=== PATIENT | male | born 1930 | race Caucasian/White ===

== ENCOUNTER 2016-04-04 19:26 | Inpatient (IN) | payer MEDICARE ==
--- NOTE | 2016-04-04 19:41 | ED ---
Dizziness - HPI Summary HPI Summary: Patient presents for evaluation after fall at home. He was transitioning from his recliner to his automated wheelchair, when he slipped and fell onto the ground. Denies any LOC, N, V, ALY, diplopia, neck/chest/back/limb/abd pain. Feels well without complaint now. Claims to have poor po intake due to lack of appetite. - History Of Current Complaint Stated Complaint: FALL/ WEAKNESS Time Seen by Provider: 04/04/16 19:29 Hx Obtained From: Patient, EMS Onset/Duration: Resolved Timing: Intermittent Episode Lasting Severity Initially: Mild Severity Currently: Mild - Allergies/Home Medications Allergies/Adverse Reactions: Allergies Allergy/AdvReac Type Severity Reaction Status Date / Time No Known Allergies Allergy Verified 11/04/13 16:50 PMH/Surg Hx/FS Hx/Imm Hx - Social History Alcohol Use: None Substance Use Type: Reports: None Smoking Status (MU): Never Smoked Tobacco Review of Systems Negative: Fever, Chills Negative: Blurred Vision, Diplopia Negative: Palpitations, Chest Pain Negative: Shortness Of Breath Negative: Abdominal Pain Negative: Arthralgia, Myalgia, Decreased ROM Negative: Headache, Weakness, Paresthesia, Numbness, Syncope, Slurred Speech All Other Systems Reviewed And Are Negative: Yes Physical Exam Triage Information Reviewed: Yes Vital Signs Reviewed: Yes Appearance: Positive: Well-Appearing, No Pain Distress, Well-Nourished Skin: Positive: Warm, Skin Color Reflects Adequate Perfusion, Dry Head/Face: Positive: Normal Head/Face Inspection. Negative: TMJ Tenderness, Cephalohematoma Eyes: Positive: Normal, EOMI, GLENDA ENT: Positive: Normal ENT inspection, Hearing grossly normal, Pharynx normal. Negative: TMs normal Neck: Positive: Supple, Nontender, No Lymphadenopathy Respiratory/Lung Sounds: Positive: Clear to Auscultation, Breath Sounds Present Cardiovascular: Positive: Normal, RRR Abdomen Description: Positive: Nontender, No Organomegaly, Soft Musculoskeletal: Positive: Normal, Strength/ROM Intact Neurological: Positive: Normal, Sensory/Motor Intact, Alert, Oriented to Person Place, Time, CN Intact II-III, Reflexes Intact, Heel to Toe, Finger to Nose, Unable to Assess Gait, Facial Symmetry, Speech Normal. Negative: Babinski Bilateral, Cerebellar Dysfunction, EOM Palsy, Facial Droop, Focal Deficit @, Slurred Speech, Pronator Drift Present Diagnostics - Laboratory Result Diagrams: 04/04/16 19:40 04/04/16 19:40 Lab Statement: Any lab studies that have been ordered have been reviewed, and results considered in the medical decision making process. - EKG No standard instances Cardiac Rate: NL EKG Rhythm: Sinus Rhythm ST Segment: Normal Ectopy: None - HR 91, left axis deviation. Dizzy Course/Dx - Diagnoses Differential Diagnosis/HQI/PQRI: Medication Reaction, Metabolic Abnormality, Other - Primary concern for generalized weakness and mechanical fall. CT head for occult ICH. CXR and UA for infection. EKG for tachyarrhythmia. Will discuss case with and review records. During his stay here, review of labwork and previous records with anion gap, metabolic acidosis acute renal failure, and presumed hypovolemic hyponatremia from poor po intake. Provider Diagnoses: High anion gap metabolic acidosis, Dehydration, Acute renal failure (ARF) - Provider Notifications Discussed Care Of Patient with: Discussed case with hospitalist and will admit, with understanding for pending urinalysis. - Critical Care Time Critical Care Time: 30-74 min Discharge - Discharge Plan Condition: Stable Disposition: ADMITTED TO [facility]
[2016-04-04 19:51] LABS: Hematocrit 47 % (42-52); Hemoglobin 15.9 g/dl (14.0-18.0); Mean Corpuscular HGB Conc 34 g/dl (31-36); Mean Corpuscular Hemoglobin 29 pg (27-31); Mean Corpuscular Volume 84 fL (80-94); Mean Platelet Volume 10 um3 (7.4-10.4); Red Blood Count 5.58 10^6/ul (4.0-5.4); Red Cell Distribution Width 15 % (10.5-15); White Blood Count 11.8 10^3/ul (3.5-10.8)
[2016-04-04 20:10] LABS: BUN/Creatinine Ratio 17.5 (8-20); Calcium 9.5 mg/dL (8.6-10.3); EGFR African American 38.8 (>60); EGFR Non-African American 30.1 (>60); Potassium 4.7 mmol/L (3.5-5.0)
--- NOTE | 2016-04-04 20:23 | RAD ---
INDICATION: Intracranial injury COMPARISON: CT brain November 04, 2013 TECHNIQUE: Noncontrast axial source images were acquired from the skull base to the vertex. FINDINGS: Ventricles/sulci: There is cortical atrophy with compensatory dilatation of the CSF spaces. Brain parenchyma: There is mild periventricular and subcortical white matter change compatible with chronic ischemia. Intracranial hemorrhage:None. Extra-axial spaces: There are no abnormal extra axial fluid collections or evidence of extra-axial mass. Calvarium: There is no calvarial fracture or other calvarial abnormality. Scalp: There is no evidence of scalp or extracalvarial soft tissue abnormality. Paranasal sinuses/mastoid: The paranasal sinuses and mastoid air cells are clear. Other: There are vascular calcifications of the visualized vertebral arteries and at the level of the carotid siphons. IMPRESSION: NO ACUTE INTRACRANIAL FINDINGS
--- NOTE | 2016-04-04 20:24 | RAD ---
INDICATION: Fall COMPARISON: November 04, 2013 TECHNIQUE: PA and lateral dual-energy views were obtained. FINDINGS: Bones/Soft Tissues: There are no acute bony findings. Surgical clips project over the left scapula Cardiomediastinal: The cardiomediastinal silhouette is normal. Lungs: There are no infiltrates. Pleura: There are no pleural effusions. Other: None IMPRESSION: NO ACTIVE DISEASE.
[2016-04-04] MEDS ORDERED: NS 0.9% 1000 ML* 1,000 ML IV ONE (20:45)
[2016-04-04] MEDS ORDERED: NS 0.9% 1000 ML* 1,000 ML IV SCH (22:15)
[2016-04-04] MEDS ORDERED: Diltiazem DRIP* 100 MG/100 ML ADDV.BAG IVPB ONE (22:29)
[2016-04-04] MEDS ORDERED: Heparin DRIP 25,000 UNITS(*) 25,000 UNITS/500 ML BAG ONE (22:30)
[2016-04-04] MEDS ORDERED: Heparin VIAL(*) 5000 UNITS/ML VIAL (FIVE THOUSAND) ONE (22:33)
[2016-04-04] MEDS: Heparin VIAL(*) 5000 UNITS/ML VIAL (FIVE THOUSAND) IV SCH (22:50)
[2016-04-04] MEDS: Heparin DRIP 25,000 UNITS(*) 25,000 UNITS/500 ML BAG IV SCH (22:53)
[2016-04-04] MEDS: Diltiazem DRIP* 100 MG/100 ML ADDV.BAG IVPB SCH (22:53)
[2016-04-04 23:48] LABS: Troponin I 0.02 ng/mL (<0.04)
[2016-04-05] MEDS: Diltiazem DRIP* 100 MG/100 ML ADDV.BAG IVPB SCH ×4 (04:32→19:58)
[2016-04-05 04:42] LABS: Add Diff/Slide Review? Slide Review Added; Comments Flag Yes; Hematocrit 41 % (42-52); Hemoglobin 13.9 g/dl (14.0-18.0); Mean Corpuscular HGB Conc 34 g/dl (31-36); Mean Corpuscular Hemoglobin 28 pg (27-31); Mean Corpuscular Volume 84 fL (80-94); Mean Platelet Volume 10 um3 (7.4-10.4); Red Cell Distribution Width 14 % (10.5-15); White Blood Count 11.2 10^3/ul (3.5-10.8)
[2016-04-05 04:55] LABS: BUN/Creatinine Ratio 20.8 (8-20); Calcium 8.3 mg/dL (8.6-10.3); EGFR African American 53.7 (>60); EGFR Non-African American 41.8 (>60); Potassium 4.2 mmol/L (3.5-5.0)
--- NOTE | 2016-04-05 11:13 | PN ---
Subjective Date of Service: 04/05/16 Interval History: . Interviewed and examined patient at bedside; Discussed case with Dr. Ozuna ; Reviewed previous notes and radiology results (T.T.E); patient is not in any distress - lying in bed. denies CP HR currently controlled, but goes up > 100 with any movement IVF ordered - bolus and then another liter IVF. following labs - evidence of dehydration noted PT consult noted. Ongonig AF -- cardiology cs tomorrow AM for NANCY/CV if not back in NSR... NPO p MN. . Family History: Unchanged from Admission Social History: Unchanged from Admission Past Medical History: Unchanged from Admission Objective Active Medications: . Heparin Sodium (Porcine) (Heparin Vial(*)) 0 units IV .PER PROTOCOL ALMA PRN Reason: Protocol Last Admin: 04/04/16 22:50 Dose: 6,150 units Diltiazem HCl (Cardizem Iv Advan*) 100 mg in 100 mls @ 15 mls/hr IVPB .PER RATE ALMA PRN Reason: 15 MG/HR Last Admin: 04/05/16 07:00 Dose: 15 mls/hr Sodium Chloride (Ns 0.9% 1000 Ml*) 1,000 mls @ 125 mls/hr IV PER RATE ALMA Last Admin: 04/04/16 22:53 Dose: 125 mls/hr Heparin Sodium/Dextrose (Heparin Drip 25,000 Units(*)) 25,000 units in 500 mls @ 0 mls/hr IV .NO INITIAL BOLUS ALMA; As Directed PRN Reason: Protocol Last Admin: 04/04/16 22:53 Dose: 23 mls/hr . Vital Signs 04/04/16 04/04/16 04/04/16 22:30 22:54 23:00 Temperature Pulse Rate 130 114 122 Respiratory 26 23 24 Rate Blood Pressure 141/88 137/111 119/74 (mmHg) O2 Sat by Pulse 93 95 94 Oximetry 04/04/16 04/04/16 04/04/16 23:01 23:15 23:27 Temperature Pulse Rate 118 139 124 Respiratory 26 27 25 Rate Blood Pressure 116/64 117/68 (mmHg) O2 Sat by Pulse 94 93 93 Oximetry 04/04/16 04/04/16 04/04/16 23:30 23:35 23:45 Temperature Pulse Rate 114 112 111 Respiratory 24 24 23 Rate Blood Pressure 104/76 117/51 (mmHg) O2 Sat by Pulse 92 92 94 Oximetry 04/04/16 04/05/16 04/05/16 23:57 00:16 00:20 Temperature 98.2 F 98.4 F Pulse Rate 116 127 Respiratory 18 21 20 Rate Blood Pressure 117/51 125/78 (mmHg) O2 Sat by Pulse 95 Oximetry 04/05/16 04/05/16 04/05/16 00:27 00:30 01:00 Temperature Pulse Rate 125 115 Respiratory 28 22 24 Rate Blood Pressure 144/75 125/91 140/79 (mmHg) O2 Sat by Pulse 96 94 Oximetry 04/05/16 04/05/16 04/05/16 01:30 02:00 03:00 Temperature Pulse Rate 116 117 115 Respiratory 28 26 28 Rate Blood Pressure 139/82 132/70 116/69 (mmHg) O2 Sat by Pulse 94 92 93 Oximetry 04/05/16 04/05/16 04/05/16 03:51 04:00 04:13 Temperature 101.1 F 99.0 F Pulse Rate 112 Respiratory 20 14 Rate Blood Pressure 120/56 (mmHg) O2 Sat by Pulse 93 Oximetry 04/05/16 04/05/16 04/05/16 04:24 04:28 04:30 Temperature Pulse Rate 105 107 Respiratory 28 25 Rate Blood Pressure 111/73 116/73 114/64 (mmHg) O2 Sat by Pulse 92 94 Oximetry 04/05/16 04/05/16 04/05/16 05:00 05:05 05:10 Temperature Pulse Rate 99 98 99 Respiratory 30 24 28 Rate Blood Pressure 114/62 108/68 119/58 (mmHg) O2 Sat by Pulse 91 93 92 Oximetry 04/05/16 04/05/16 04/05/16 05:15 05:30 05:33 Temperature 98.9 F Pulse Rate 96 96 Respiratory 25 27 Rate Blood Pressure 101/58 105/63 (mmHg) O2 Sat by Pulse 93 91 Oximetry 04/05/16 04/05/16 04/05/16 05:45 06:00 06:30 Temperature Pulse Rate 94 91 95 Respiratory 25 23 16 Rate Blood Pressure 111/66 110/63 117/68 (mmHg) O2 Sat by Pulse 92 91 91 Oximetry 04/05/16 04/05/16 04/05/16 07:00 07:30 08:00 Temperature Pulse Rate 95 92 100 Respiratory 26 23 22 Rate Blood Pressure 111/69 115/66 123/55 (mmHg) O2 Sat by Pulse 92 93 90 Oximetry 04/05/16 04/05/16 04/05/16 09:00 09:04 10:00 Temperature Pulse Rate 124 99 Respiratory 25 32 23 Rate Blood Pressure 138/64 129/51 (mmHg) O2 Sat by Pulse 92 94 Oximetry Oxygen Devices in Use Now: None Appearance: elderly, frail Eyes: No Scleral Icterus Ears/Nose/Mouth/Throat: Clear Oropharnyx Neck: Trachea Midline Respiratory: Clear to Auscultation Cardiovascular: NL Sounds; No Murmurs; No JVD Lymphatic: No Cervical Adenopathy Extremities: No Edema Skin: No Rash or Ulcers Neurological: Alert and Oriented x 3 Lines/Tubes/Other Access: Clean, Dry and Intact Peripheral IV Nutrition: Taking PO's Result Diagrams: 04/06/16 01:45 04/06/16 01:45 Assess/Plan/Problems-Billing . Assessment: .85 year old man with weakness, falls and new, rapid atrial fibrillation. Current Inpatient Medications: - Heparin drip per protocol - Diltiazem drip at 15 MG/HR - NS 1,000 mls @ 125 mls/hr IV - Patient Problems (1) Atrial fibrillation with RVR Current Visit: Yes Status: Acute Code(s): I48.91 - UNSPECIFIED ATRIAL FIBRILLATION SNOMED Code(s): 298326607525640 Comment: - Heparin gtt ongoing - Diltiazem gtt ongoing - Add PO metoprolol 25 mg PO BID - titrate gtt - TTE - no dilated LA, and hyperdynamic LV (EF > 60%) - consult cardiology for NANCY/CV on 04/06/16 if they agree. (2) Hyponatremia Current Visit: Yes Status: Acute Priority: High Code(s): E87.1 - HYPO- OSMOLALITY AND HYPONATREMIA Comment: - consequence of intravascular volume? - iL LR bolus, then ongoing fluids (3) Acute renal failure (ARF) Current Visit: Yes Status: Acute Priority: High Comment: - likely pre-renal - LR bolus, then standing fluids overnight - follow labs: BUN/Cr and HCO3...noted derangements c/w hypovolemia/ dehydration. (4) BPH (benign prostatic hypertrophy) Current Visit: Yes Status: Chronic Priority: High Code(s): N40.0 - BENIGN PROSTATIC HYPERPLASIA WITHOUT LOWER URINRY TRACT SYMP Comment: - bladder scan Q6 to r/o retention (post-obstructive mechancism of ARF)
--- NOTE | 2016-04-05 11:17 | ECHO ---
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 Technical Comments: The study is technically difficult. The study is technically limited due to poor apical windows. Lung tissue interference is seen. Left Ventricle: The left ventricular chamber size is decreased. Mild concentric left ventricular hypertrophy is observed. The left ventricle appears hyperdynamic. The estimated ejection fraction is greater than 65%. The assessment of diastolic function is non-diagnostic. Left Atrium: The left atrial chamber size is normal. Right Ventricle: The right ventricular cavity size is normal. The right ventricular global systolic function is normal. Right Atrium: The right atrial cavity size is normal. Aortic Valve: The aortic valve is trileaflet. Mild aortic leaflet calcification is visualized.There is mild decreased leaflet excursion. Systolic excursion of the non coronary cusp is reduced. There is a trace of aortic regurgitation. There is mild aortic stenosis. The mean gradient of the aortic valve is 10.41 mmHg. The peak instantaneous gradient of the aortic valve is 15.24 mmHg. The aortic valve area, by peak velocities, is calculated at 1.9 cm2. The aortic valve area, by VTI's, is calculated at 1.7 cm2. The highest aortic valve velocity was obtained with the standard probe from the A5C view. Mitral Valve: There is mitral annular calcification. The mitral valve leaflets are mildly thickened. There is a trace of mitral regurgitation. There is no evidence of mitral stenosis. Tricuspid Valve: The tricuspid valve leaflets are normal. There is trace tricuspid regurgitation. There is evidence that pulmonary hypertension may be underestimated. There is no tricuspid stenosis. Pulmonic Valve: The pulmonic valve appears normal. There is a trace pulmonic regurgitation. There is no pulmonic stenosis. Pericardium: There is no significant pericardial effusion. A pericardial fat pad is visualized. Aorta: There is no dilatation of the ascending aorta. There is no dilatation of the aortic arch. There is no dilation of the aortic root. Pulmonary Artery: The main pulmonary artery appears normal. Venous: The venous system is not well visualized. Conclusions The patient is noted to be in atrial fibrillation throughout the study The study is technically limited due to poor apical windows. Mild concentric left ventricular hypertrophy is observed. The left ventricle appears hyperdynamic. The estimated ejection fraction is greater than 65%. There is a trace of aortic regurgitation. There is mild aortic stenosis. There is a trace of mitral regurgitation. There is trace tricuspid regurgitation. No reports of prior studies are offered for comparison. Measurements Name Value Normal Range RVIDd (AP) 2D 3 cm (0.9 - 2.6) RVDdMajor (2D) 3.6 cm (2.2 - 4.4) RAd ISD 4CH 4.5 cm (3.4 - 4.9) RA (A4C)W 3.6 cm (2.9 - 4.6) IVSd (2D) 1.2 cm (0.6 - 1) LVPWd (2D) 1.2 cm (0.6 - 1) LVIDd (2D) 3.5 cm (3.6 - 5.4) LVIDs (2D) 2.5 cm - LV FS (2D) 29 % (25 - 45) Aortic Annulus 2.2 cm (1.4 - 2.6) Ao root diameter (2D) 3.1 cm (2.1 - 3.5) Ascending Ao 3.3 cm (2.1 - 3.4) Aortic arch 3.3 cm (1.8 - 3.4) LA dimension (AP) 2D 3.7 cm (2.3 - 3.8) LAd ISD 4CH 5.8 cm (2.9 - 5.3) LA ISD 4CH W 4.4 cm (2.5 - 4.5) Name Value Normal Range LA ESV SP 4CH (A/L) 75 ml - LA ESV SP 2CH (A/L) 29 ml - LA ESV BP (A/L) 49 ml - LA ESV BP (A/L) index 24.84 ml/m2 - LA ESV SP 4CH (MOD) 68 ml - LA ESV SP 2CH (MOD) 28 ml - Name Value Normal Range MV E-wave Vmax 1 m/sec - MV deceleration time 230 msec - LV septal e' Vmax 0.08 m/sec - LV lateral e' Vmax 0.1 m/sec - LV E:e' septal ratio 12.5 ratio - LV E:e' lateral ratio 10 ratio - Name Value Normal Range AV Vmax 2 m/sec - AV VTI 32.24 cm - AV peak gradient 15.24 mmHg - AV mean gradient 10.41 mmHg - LVOT diameter 2.2 cm - LVOT Vmax 1 m/sec - LVOT VTI 14.04 cm - LVOT peak gradient 4.15 mmHg - LVOT mean gradient 2.24 mmHg - SYED (continuity Vmax) 1.9 cm2 - SYED (continuity VTI) 1.7 cm2 - VU Vmax 0.5 m/sec - Name Value Normal Range TR Vmax 1.9 m/sec - TR peak gradient 15.01 mmHg - RAP 8 mmHg - RVSP 23 mmHg - Name Value Normal Range PV Vmax 1 m/sec - PV peak gradient 4.14 mmHg -
--- NOTE | 2016-04-05 15:45 | HP ---
HISTORY AND PHYSICAL: DATE OF ADMISSION: 04/05/16 CHIEF COMPLAINT: Weakness. HISTORY OF PRESENT ILLNESS: The patient is an 85-year-old gentleman who presents to [facility] with a chief complaint that his legs would not hold him up. He said he has had problems over a long time with his legs. He uses a cane and often had to go to store and use the wheelchair in the store. However, this morning, it was much worse that he literally could not stand on his legs. He notes he has had decreased appetite as well, has not been eating and drinking as much food either. He denies any back pain associated with it. He denies any headache or lightheadedness. He denies any dizziness. He has no other complaints of chest pain, shortness of breath, or palpitations. He denies any fevers or chills. He denies any recent weight loss. This is more of a generalized weakness. PAST MEDICAL HISTORY: Not entirely clear, but he does have history of hypertension, hyperlipidemia, and BPH. CURRENT MEDICATIONS: He is unclear as to which ones, but he does take lisinopril unknown dose, lovastatin unknown dose, and a medication for his prostate. ALLERGIES: He has no known drug allergies. FAMILY HISTORY: Mother at 71 of some form of cancer. His father of heart trouble. SOCIAL HISTORY: No tobacco, he quit 40 years ago. No alcohol or recreational drug use. 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 He is . He has no children. His , Karina Ureña, is his health care proxy. REVIEW OF SYSTEMS: A 14-point review of systems was completed with the patient. All pertinent positives and negatives are in the history of present illness, otherwise is negative. PHYSICAL EXAMINATION GENERAL: A pleasant gentleman, lying in bed, in no acute distress. VITAL SIGNS: Temperature 98.2 degrees, heart rate 116 beats per minute, respiratory rate 18 breaths per minute, and blood pressure 117/51. HEENT: Normocephalic, atraumatic. Pupils are equal, round, and reactive to light. Moist mucous membranes. NECK: Supple. No JVD, bruits, palpable thyroid, or lymphadenopathy. CHEST: Clear to auscultation and percussion bilaterally. CARDIOVASCULAR: S1, S2 appreciated. Regular rate and rhythm. ABDOMEN: Positive bowel sounds in all 4 quadrants. Soft, nontender, and nondistended. No hepatosplenomegaly. EXTREMITIES: No cyanosis, clubbing, or edema; +2 peripheral pulses bilaterally. NEUROLOGIC: Alert and oriented x3. Moves all extremities. SKIN: No distinct rashes or abnormalities. DIAGNOSTIC STUDIES/LAB DATA: His white count is 11.8, hemoglobin 15.9, hematocrit 47, and platelets 148. Sodium 127, potassium 4.7, chloride 97, CO2 17, BUN 37, creatinine 2.11, and glucose 143. EKG shows AFib with a rapid ventricular response. Chest x-ray shows no active disease. Brain CT shows no acute intracranial findings. ASSESSMENT AND PLAN: 1. Weakness: This could be from the atrial fibrillation with a rapid ventricular response. Interestingly, when he first came to the ER, he did not appear to have this, but he went into it while I was seeing him. It could be something else brewing as well and he should be monitored overnight. I will have Physical Therapy see the patient as well. It may just be weakness due to dehydration and poor nutrition in conjunction with his already underlying generalized weakness. At this point, it is unclear. 2. Atrial fibrillation with a rapid ventricular response: This is a new finding. We will place him on Cardizem drip and heparin drip. Get transthoracic echocardiogram. 3. Hypertension: Unclear what his medications are. We will get records from his PCP. 4. Benign prostatic hyperplasia: Again, unclear what his medication is. We will get records from his PCP. 5. DVT prophylaxis: Heparin subcu. 6. FEN: Regular diet. 7. Code status: The patient is a full code. TIME SPENT: Over 75 minutes was spent on this H and P; more than 40 minutes of which was spent in direct [id number] contact with the patient, evaluation, physical exam, counseling, and coordination of care. CC: Dylon Farnsworth MD * [id number]/[facility] #: [id number] MTDD
[2016-04-05 16:39] LABS: Urine Bilirubin Negative (Negative); Urine Glucose Negative (Negative); Urine Nitrite Negative (Negative)
[2016-04-05] MEDS: Heparin VIAL(*) 5000 UNITS/ML VIAL (FIVE THOUSAND) IV SCH (17:33)
[2016-04-05] MEDS: Metoprolol Tartrate TAB* 25 MG PO SCH (20:19)
[2016-04-05] MEDS: Heparin DRIP 25,000 UNITS(*) 25,000 UNITS/500 ML BAG IV SCH (20:55)
[2016-04-06 02:04] LABS: Hematocrit 40 % (42-52); Hemoglobin 13.7 g/dl (14.0-18.0); Mean Corpuscular HGB Conc 34 g/dl (31-36); Mean Corpuscular Hemoglobin 29 pg (27-31); Mean Corpuscular Volume 84 fL (80-94); Mean Platelet Volume 9 um3 (7.4-10.4); Red Blood Count 4.79 10^6/ul (4.0-5.4); Red Cell Distribution Width 15 % (10.5-15); White Blood Count 8.2 10^3/ul (3.5-10.8)
[2016-04-06 02:18] LABS: BUN/Creatinine Ratio 21.3 (8-20); Calcium 8.3 mg/dL (8.6-10.3); EGFR African American 69.7 (>60); EGFR Non-African American 54.2 (>60); Potassium 4.4 mmol/L (3.5-5.0)
[2016-04-06] MEDS: Diltiazem DRIP* 100 MG/100 ML ADDV.BAG IVPB SCH (03:02)
--- NOTE | 2016-04-06 07:36 | CONSULT ---
Subjective Date of Service: 04/06/16 Interval History: DATE OF ADMISSION: 04/05/16 Date of consults 04/06/2016 Service: Hospitalist PMD: Dr. Dylon Farnsworth CHIEF COMPLAINT: Weakness. Reason for consult: Atrial fibrillation HISTORY OF PRESENT ILLNESS: The patient is an 85-year-old gentleman who presents to [facility] with a chief complaint that his legs would not hold him up and had severe weakness. 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 He also has hypertension and BPH. He had been on a statin in the past but this was stopped. He denies any prior known history of arrhythmia, CHF, CAD/NV. He uses a cane and wheelchair at times. He has had decreased appetite and has not been eating and drinking much. He denies any CP, dyspnea, palpitations or syncope. He was initially found to be in normal sinus rhythm with these symptoms. He was also found with severe dehdration and acute renal failure. After admission he went into rapid atrial fibrillation. He was rate controlled with IV diltiazem and oral metoprolol. He was also given IV fluids. His Afib rate is now controlled and renal function improving and symptoms improving. PAST MEDICAL HISTORY: HTN BPH ? stroke CURRENT MEDICATIONS: 3 in AM: lisinopril, ? plavix, and another 2 in PM: BPH med and medication to help with infection ALLERGIES: He has no known drug allergies. FAMILY HISTORY: Mother at 71 cancer SOCIAL HISTORY: No tobacco, he quit 40 years ago. No alcohol or recreational drug use. 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 He is . He has no children. His , Karina Ureña, is his health care proxy and he has been taking care of her at home. Medications Active Medications: Heparin Sodium (Porcine) (Heparin Vial(*)) 0 units IV .PER PROTOCOL ALMA PRN Reason: Protocol Last Admin: 04/05/16 17:33 Dose: 6,100 units Diltiazem HCl (Cardizem Iv Advan*) 100 mg in 100 mls @ 15 mls/hr IVPB .PER RATE ALMA PRN Reason: 15 MG/HR Last Admin: 04/06/16 03:02 Dose: 15 mls/hr Heparin Sodium/Dextrose (Heparin Drip 25,000 Units(*)) 25,000 units in 500 mls @ 0 mls/hr IV .NO INITIAL BOLUS ALMA; As Directed PRN Reason: Protocol Last Admin: 04/05/16 20:55 Dose: 30 mls/hr Potassium Chloride 20 meq/ (Lactated Ringer's) 1,010 mls @ 126.25 mls/hr IVPB Q8H ALMA Last Admin: 04/06/16 02:04 Dose: 126.25 mls/hr Metoprolol Tartrate (Lopressor Tab*) 25 mg PO BID ALMA Last Admin: 04/05/16 20:19 Dose: 25 mg Home Medications: Lisinopril TAB* [Prinivil TAB 5 MG*] 5 mg PO DAILY 11/04/13 [History Confirmed 11/04/13] Multiple Vitamin [Multivitamins] 1 cap PO DAILY 11/04/13 [History Confirmed ] Review of Systems - Measurements Intake and Output: Intake and Output Last 24 Hours 04/04/16 04/05/16 04/06/16 04/07/16 06:59 06:59 06:59 06:59 Intake Total 3128 779 Output Total 250 Balance 2878 779 Weight 186 lb 14.4 oz Intake: IV Fluids 2268 695 cardizem 268 62 potassium in LR 2000 633 Heparin 320 84 Oral 540 Output: Urine 250 Other: Estimated Void Medium # Bowel Movements 0 # Voids 0 - Review of Systems Constitutional Symptoms: Positive: Weakness, Fatigue Negative: Weight Gain, Weight Loss, Fever, Night Sweats, Unexplained Falls Dermatology: Negative: Rash, Skin Lesions HEENT: Negative: Change in Hearing, Vertigo, Tinnitus Eyes: Positive: Change in Vision Negative: Double Vision Thyroid: Negative: Cold Intolerance, Heat Intolerance, Sweatiness, Tremor, Frequent Defecation, Constipation, Palpitations, Primary Hypothyroidism, Primary Hyperthyroidism, Weight Loss, Weight Gain, Change in Skin/Hair Pulmonary: Positive: Exercise Intolerance Negative: Cough, Sputum, Hemoptysis, Wheezing, Respiratory Distress, Shortness of Breath, COPD Cardiology: Positive: Faintness Negative: Chest Pain, Shortness of Breath, Palpitations, Swelling of Ankles, Peripheral Vascular Dis, Edema, Syncope, Claudication, Paroxysmal Nocturnal Dyspnea, Orthopnea Gastroenterology: Negative: Abdominal Pain, Nausea, Vomiting, Anorexia, Indigestion, Difficulty Swallowing, Heartburn, Constipation, Diarrhea Genital - Urinary: Negative: Normal, Dysuria, Hematuria, Polyuria, Nocturia Endocrinology: Negative: Thyroid Problems, Family Hx Endocrine Disorders, Obesity, Diabetes , Hyperglycemia, Hypoglycemia, Calluses, Hirsutism, Polydipsia, Polyuria Hematologic/Lymphatic: Positive: Use of Antiplatelet Drugs Negative: Anemia, Easy Brusing, Hx Leukemia, Hx Lymphoma, Use of Anticoagulant, Other Neurology: Positive: Unexplained Weakness Negative: Headaches, Migraines, Change in Vision, Change in Balancing, Change in Coordination, Change in Memory, Change in Speech, Change in Sphincter Function, Change in Walking, Numbness\Paresthesiae Psychiatry: Negative: Depression, Anxiety, Depressed Mood, Adhedonia, Sexual Dysfunction , Weight Change, Guilt Feelings, Tearfulness Allergic/Immunologic: Negative: Hx Anaphylaxis, Hx Angioedema, Hx Environmental Allergies, Hx Seasonal Allergies Review of Systems Statement: All other review of systems negative, unless stated above. Objective Vital Signs: Temp Pulse Resp BP Pulse Ox 99.2 F 75 21 109/52 94 04/06/16 04:44 04/06/16 06:00 04/06/16 06:00 04/05/16 19:39 04/06/16 06:00 Oxygen Devices in Use Now: None Appearance: frail, elderly, pleasant Ears/Nose/Mouth/Throat: Clear Oropharnyx, Mucous Membranes Moist, - - ? mild right facial paralysis Neck: NL Appearance and Movements; NL JVP Respiratory: Symmetrical Chest Expansion and Respiratory Effort, Clear to Auscultation Cardiovascular: No Edema, - - irregularly irregular, no significant murmur Abdominal: NL Sounds; No Tenderness; No Distention Extremities: No Edema, No Clubbing, Cyanosis Skin: No Rash or Ulcers Neurological: Alert and Oriented x 3 Laboratory Results: 04/06/16 01:45 04/06/16 01:45 APTT 102.3 seconds (26.0-36.3) H* 04/06/16 01:45 04/04/16 19:40 Troponin I 0.02 Diagnostic Imaging: TTE 04/04/2016: Mild LVH, hyperdynamic LVEF > 65%, mild EKG Data: EKG 04/04/2016: NSR, LVH with repolarization changes EKG 04/06/2016: Rate controlled Afib Assessment/Plan In summary, Mr. Ureña is an 85 year old man with ? CVA, HTN, BPH admitted with severe weakness and dehydration and acute renal failure. Found to have rapid atrial fibrillation after admission. - Given that patient had symptoms while in sinus rhythm and only later converted to AFib (and currently symptoms improving) argues against Afib being his primary issue causing decompensation. Would consider other issues such as hyponatremia, thyroid dysfunction (added on thyroid studies), etc as a cause. I would also obtain prior medical records because a thiazide diuretic could also cause this clinical picture - Needs PT/OT eval, may need short term rehab. 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 Would stop heparin gtt and start eliquis 5 mg PO BID for CVA prevention , risks/benefits/alternatives discussed and patient agreeable - Would stop diltiazem gtt and rate control with oral BB/CCB - Will arrange followup Thank you for allowing me to participate in the cardiovascular care of this patient. Please do not hesitate to contact me with questions or concerns.
[2016-04-06 08:18] LABS: Magnesium 2.2 mg/dL (1.9-2.7)
[2016-04-06] MEDS: Metoprolol Tartrate TAB* 25 MG PO SCH ×2 (08:25→20:25)
[2016-04-06] MEDS: Apixaban* 5 MG TAB PO SCH ×2 (10:29→20:25)
[2016-04-06 13:59] LABS: Free T4 0.9 ng/dL (0.61-1.12)
[2016-04-06 14:11] LABS: TSH (Thyroid Stimulating Horm) 2.25 mcIU/mL (0.34-5.60)
--- NOTE | 2016-04-06 17:18 | PN ---
Subjective Date of Service: 04/06/16 Interval History: . Seems a bit better today after rehydration. more alert - working with PT but still has very significant weakness. definitely good candidate for rehab patient seen by cardiology - deferring NANCY/CV at this time and opting for rate control and ac - starting eliquis -- titrating up metoprolol. still with hyponatremia and metabloic acidosis ? from NS? --> try one L D5 with bicarb for further IV volume expansion. eating regular diet. . Family History: Unchanged from Admission Social History: Unchanged from Admission Past Medical History: Unchanged from Admission Objective Active Medications: . Apixaban (Eliquis*) 5 mg PO BID [facility] Last Admin: 04/06/16 10:29 Dose: 5 mg Sodium Bicarbonate 150 meq/ (Dextrose) 1,150 mls @ 500 mls/hr IV ONCE ONE Stop: 04/06/16 19:27 Metoprolol Tartrate (Lopressor Tab*) 25 mg PO BID [facility] Last Admin: 04/06/16 08:25 Dose: 25 mg . Vital Signs 04/05/16 04/05/16 04/05/16 18:00 19:00 19:39 Temperature 99.0 F Pulse Rate 93 Respiratory 26 22 16 Rate Blood Pressure 108/88 115/75 109/52 (mmHg) O2 Sat by Pulse 95 Oximetry 04/05/16 04/05/16 04/05/16 20:00 21:00 22:00 Temperature Pulse Rate 89 90 78 Respiratory 26 26 29 Rate Blood Pressure (mmHg) O2 Sat by Pulse 92 93 93 Oximetry Oxygen Devices in Use Now: None Appearance: elderly man - appear stated age Eyes: No Scleral Icterus Ears/Nose/Mouth/Throat: Clear Oropharnyx Neck: NL Appearance and Movements; NL JVP, Trachea Midline Respiratory: Symmetrical Chest Expansion and Respiratory Effort Cardiovascular: NL Sounds; No Murmurs; No JVD Abdominal: NL Sounds; No Tenderness; No Distention Lymphatic: No Cervical Adenopathy Skin: No Rash or Ulcers Neurological: Alert and Oriented x 3 Lines/Tubes/Other Access: Clean, Dry and Intact Peripheral IV Nutrition: Taking PO's Result Diagrams: 04/06/16 01:45 04/06/16 01:45 Assess/Plan/Problems-Billing . Assessment: .85 year old man with weakness, falls and new, rapid atrial fibrillation --> now rate controlled and anticoagulated Current Inpatient Medications: - Eliquis 5 mg PO BID - Metoprolol 25 mg PO BID - D5 with bicarb x 1 L - Patient Problems (1) Atrial fibrillation with RVR Current Visit: Yes Status: Acute Code(s): I48.91 - UNSPECIFIED ATRIAL FIBRILLATION SNOMED Code(s): 681137898347853 Comment: - Metoprolol 25 mg PO BID - titrate gtt - TTE - no dilated LA, and hyperdynamic LV (EF > 60%) - NANCY defered by cardiology - reviewed consult (appreciated) and agree. - Eliquis for anticoagulation. (2) Hyponatremia Current Visit: Yes Status: Acute Priority: High Code(s): E87.1 - HYPO- OSMOLALITY AND HYPONATREMIA Comment: - D5 with bicarb, then 1L NS at 100 cc/hr--> recheck bmp in AM. (3) Acute renal failure (ARF) Current Visit: Yes Status: Acute Priority: High Comment: - Cr improved significantly. - Contiue to volume expand (4) BPH (benign prostatic hypertrophy) Current Visit: Yes Status: Chronic Priority: High Code(s): N40.0 - BENIGN PROSTATIC HYPERPLASIA WITHOUT LOWER URINRY TRACT SYMP Comment: - bladder scan Q6 to r/o retention (post-obstructive mechancism of ARF) - was not significant volume.
[2016-04-06 17:40] LABS: Albumin 3.1 g/dL (3.2-5.2); Direct Bilirubin 0.1 mg/dL (0.03-0.18); Globulin 3.1 g/dL (2-4); Indirect Bilirubin 0.8 mg/dL (0.3-1.0); Total Bilirubin 0.9 mg/dL (0.2-1.0); Total Protein 6.2 g/dL (6.4-8.9)
[2016-04-06] MEDS ORDERED: D5W IV ONE ×4 (18:00→18:30)
[2016-04-06] MEDS ORDERED: SODIUM BICARBONATE IV ONE ×4 (18:00→18:30)
[2016-04-06] MEDS: NS 0.9% 1000 ML* 1,000 ML IV SCH (18:48)
[2016-04-07] MEDS: NS 0.9% 1000 ML* 1,000 ML IV SCH (05:06)
[2016-04-07 05:58] LABS: Hematocrit 39 % (42-52); Hemoglobin 13.4 g/dl (14.0-18.0); Mean Corpuscular HGB Conc 35 g/dl (31-36); Mean Corpuscular Hemoglobin 29 pg (27-31); Mean Corpuscular Volume 84 fL (80-94); Mean Platelet Volume 9 um3 (7.4-10.4); Red Cell Distribution Width 14 % (10.5-15); White Blood Count 6.1 10^3/ul (3.5-10.8)
[2016-04-07 06:09] LABS: BUN/Creatinine Ratio 16.3 (8-20); Calcium 7.7 mg/dL (8.6-10.3); EGFR African American 100.8 (>60); EGFR Non-African American 78.4 (>60); Phosphorus 2.2 mg/dL (2.5-5.0)
[2016-04-07] MEDS ORDERED: NS 0.9% 250 ML* 250 ML ONE (07:37)
[2016-04-07] MEDS ORDERED: Potassium Phosphate IV* 15 MMOLE in NS 0.9% 250 ML* 250 ML IVPB ONE (08:00)
[2016-04-07] MEDS: Apixaban* 5 MG TAB PO SCH ×2 (08:51→20:53)
[2016-04-07] MEDS: Metoprolol Tartrate TAB* 25 MG PO SCH ×2 (08:51→20:53)
--- NOTE | 2016-04-07 11:45 | PN ---
Subjective Date of Service: 04/07/16 Interval History: . no c/o AF rate controlled labs better with further hydration overnight working with PT - still limited. plan for rehab at discharge. . Family History: Unchanged from Admission Social History: Unchanged from Admission Past Medical History: Unchanged from Admission Objective Active Medications: .Apixaban (Eliquis*) 5 mg PO BID [facility] Last Admin: 04/07/16 08:51 Dose: 5 mg Sodium Chloride (Ns 0.9% 1000 Ml*) 1,000 mls @ 100 mls/hr IV PER RATE [facility] Last Admin: 04/07/16 05:06 Dose: 100 mls/hr Potassium Phosphate 15 mmole/ (Sodium Chloride) 255 mls @ 42.5 mls/hr IVPB ONCE ONE Stop: 04/07/16 13:59 Last Admin: 04/07/16 08:51 Dose: 42.5 mls/hr Metoprolol Tartrate (Lopressor Tab*) 25 mg PO BID [facility] Last Admin: 04/07/16 08:51 Dose: 25 mg . Vital Signs 04/06/16 04/06/16 04/06/16 11:47 15:02 15:24 Temperature 98.1 F 98.2 F Pulse Rate 71 84 77 Respiratory 29 28 18 Rate Blood Pressure 125/56 122/50 (mmHg) O2 Sat by Pulse 93 97 95 Oximetry 04/06/16 04/06/16 04/06/16 19:40 20:00 23:35 Temperature 98.0 F 98.4 F Pulse Rate 97 82 Respiratory 18 18 16 Rate Blood Pressure 128/64 112/64 (mmHg) O2 Sat by Pulse 97 96 Oximetry Oxygen Devices in Use Now: None Appearance: NAD Eyes: No Scleral Icterus Ears/Nose/Mouth/Throat: NL Teeth, Lips, Gums Neck: NL Appearance and Movements; NL JVP Respiratory: Symmetrical Chest Expansion and Respiratory Effort Cardiovascular: NL Sounds; No Murmurs; No JVD Abdominal: NL Sounds; No Tenderness; No Distention Lymphatic: No Cervical Adenopathy Extremities: No Edema Skin: No Rash or Ulcers Neurological: Alert and Oriented x 3 Lines/Tubes/Other Access: Clean, Dry and Intact Peripheral IV Nutrition: Taking PO's Result Diagrams: 04/07/16 05:33 04/08/16 05:00 Assess/Plan/Problems-Billing . Assessment: .85 year old man with weakness, falls and new, rapid atrial fibrillation --> now rate controlled and anticoagulated Current Inpatient Medications: - Eliquis 5 mg PO BID - Metoprolol 25 mg PO BID - D5 with bicarb x 1 L (done_ - Patient Problems (1) Atrial fibrillation with RVR Current Visit: Yes Status: Acute Code(s): I48.91 - UNSPECIFIED ATRIAL FIBRILLATION SNOMED Code(s): 484444158988615 Comment: - Metoprolol 25 mg PO BID - titrate dose - TTE - no dilated LA, and hyperdynamic LV (EF > 60%) - NANCY defered by cardiology - reviewed consult (appreciated) and agree. - Eliquis for anticoagulation. (2) Weakness generalized Current Visit: Yes Status: Acute Priority: High Code(s): R53.1 - WEAKNESS Comment: - appropriate for rehabilitation - disposition pending placement - case management aware of patient and needs. (3) Hyponatremia Current Visit: Yes Status: Acute Priority: High Code(s): E87.1 - HYPO- OSMOLALITY AND HYPONATREMIA Comment: - improved, Na > 130 as of 04/07. (4) Acute renal failure (ARF) Current Visit: Yes Status: Acute Priority: High Comment: - Cr improved significantly. - volume replete now. (5) BPH (benign prostatic hypertrophy) Current Visit: Yes Status: Chronic Priority: High Code(s): N40.0 - BENIGN PROSTATIC HYPERPLASIA WITHOUT LOWER URINRY TRACT SYMP Comment: - bladder scan Q6 to r/o retention (post-obstructive mechancism of ARF) - was not significant volume.
[2016-04-08 05:53] LABS: BUN/Creatinine Ratio 15.9 (8-20); EGFR African American 115.1 (>60); EGFR Non-African American 89.5 (>60); Potassium 3.9 mmol/L (3.5-5.0)
[2016-04-08] MEDS: Apixaban* 5 MG TAB PO SCH ×2 (08:33→21:41)
[2016-04-08] MEDS: Metoprolol Tartrate TAB* 25 MG PO SCH ×2 (08:33→21:41)
--- NOTE | 2016-04-08 13:24 | PN ---
Subjective Date of Service: 04/08/16 Interval History: . saw patient at bedside doing well still weak for independent walking -- works with RN/PT and does well - but significant deficits noted denies CP/SOB hydration improved labs further patient with excellent appetite good spirits no pain reported. . Family History: Unchanged from Admission Social History: Unchanged from Admission Past Medical History: Unchanged from Admission Objective Active Medications: . Apixaban (Eliquis*) 5 mg PO BID [facility] Last Admin: 04/08/16 08:33 Dose: 5 mg Metoprolol Tartrate (Lopressor Tab*) 25 mg PO BID [facility] Last Admin: 04/08/16 08:33 Dose: 25 mg . Vital Signs 04/07/16 04/07/16 04/07/16 15:25 19:36 20:00 Temperature 98.2 F 98.0 F Pulse Rate 114 108 Respiratory 15 18 17 Rate Blood Pressure 106/67 131/71 (mmHg) O2 Sat by Pulse 95 99 Oximetry 04/07/16 04/08/16 04/08/16 23:54 04:14 07:21 Temperature 98.4 F 98.4 F 97.6 F Pulse Rate 92 114 96 Respiratory 16 16 18 Rate Blood Pressure 120/71 132/72 137/71 (mmHg) O2 Sat by Pulse 97 97 96 Oximetry Oxygen Devices in Use Now: None Appearance: NAD; elderly and frail. Eyes: No Scleral Icterus Ears/Nose/Mouth/Throat: NL Teeth, Lips, Gums Neck: NL Appearance and Movements; NL JVP Respiratory: Symmetrical Chest Expansion and Respiratory Effort Cardiovascular: NL Sounds; No Murmurs; No JVD Abdominal: NL Sounds; No Tenderness; No Distention Lymphatic: No Cervical Adenopathy Extremities: No Edema Skin: No Rash or Ulcers Neurological: Alert and Oriented x 3 Lines/Tubes/Other Access: Clean, Dry and Intact Peripheral IV Nutrition: Taking PO's Result Diagrams: 04/07/16 05:33 04/08/16 05:00 Assess/Plan/Problems-Billing . Assessment: .85 year old man with weakness, falls and new, rapid atrial fibrillation --> now rate controlled and anticoagulated Current Inpatient Medications: - Eliquis 5 mg PO BID - Metoprolol 25 mg PO BID - D5 with bicarb x 1 L (done) . - Patient Problems (1) Atrial fibrillation with RVR Current Visit: Yes Status: Acute Code(s): I48.91 - UNSPECIFIED ATRIAL FIBRILLATION SNOMED Code(s): 617456679891491 Comment: - Metoprolol 25 mg PO BID - titrate dose - TTE - no dilated LA, and hyperdynamic LV (EF > 60%) - NANCY defered by cardiology - reviewed consult (appreciated) and agree. - Eliquis for anticoagulation. (2) Weakness generalized Current Visit: Yes Status: Acute Priority: High Code(s): R53.1 - WEAKNESS Comment: - appropriate for rehabilitation - disposition pending placement - case management aware of patient and needs. (3) Hyponatremia Current Visit: Yes Status: Acute Priority: High Code(s): E87.1 - HYPO- OSMOLALITY AND HYPONATREMIA Comment: - improved, Na > 130 as of 04/07. (4) Acute renal failure (ARF) Current Visit: Yes Status: Acute Priority: High Comment: - Cr improved significantly. - volume replete now. (5) BPH (benign prostatic hypertrophy) Current Visit: Yes Status: Chronic Priority: High Code(s): N40.0 - BENIGN PROSTATIC HYPERPLASIA WITHOUT LOWER URINRY TRACT SYMP Comment: - retention resolved.
[2016-04-09] MEDS: Apixaban* 5 MG TAB PO SCH (09:13)
[2016-04-09] MEDS: Metoprolol Tartrate TAB* 25 MG PO SCH (09:14)
[2016-04-09 12:58] VITALS: BP 141/67
--- NOTE | 2016-04-09 22:55 | DS ---
DISCHARGE SUMMARY: DATE OF ADMISSION: 04/04/16 DATE OF DISCHARGE: 04/09/16 PRIMARY CARE PROVIDER: Dr. Farnsworth. PRIMARY DIAGNOSES: 1. Atrial fibrillation. 2. Rapid ventricular response. SECONDARY DIAGNOSES: Include: 1. Acute kidney injury. 2. Mild dementia. 3. Generalized weakness. 4. Hyponatremia. 5. Benign prostatic hyperplasia. HISTORY OF PRESENT ILLNESS AND HOSPITAL COURSE: This is an 86-year-old man, poor contact with medical community, been in his usual state of health, until he felt like he had increasing lower extremity weakness for which he presented to the emergency room and was found in atrial fibrillation with rapid ventricular response. Additionally, creatinine was 2.11, resolved with crystalloids and sodium was 127, resolved to 134 with the crystalloids. Discharge creatinine is 0.82. He was weak on presentation, improved, was originally thought he would need subacute rehab; however, by the day of discharge was reevaluated by Physical Therapy and did excellent and was able to ambulate, although using a walker was recommended. Has a walker at home. For his atrial fibrillation, he was seen in consultation with Cardiology, started on Eliquis as well as metoprolol 25 twice daily. His heart rate remained in control, however, in the low 100s. His metoprolol was increased to 3 times daily for a total daily dose of 75 mg prior to discharge. Likely dehydration as well as his rapid ventricular response contributing to his generalized weakness which prompted his hospital stay. 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 Even when a location was secured for subacute rehab, the patient was adamant that he will not attend. A full capacity judgment was not conducted; however, it would be the patient's expressed desire to return home even in the setting of increased risk of doing so. Fortunately, at this time that is not necessary as he has demonstrated ability to care for himself at home at this time. Extensive education regarding using roller walker as well as medication changes were undergone with the patient. Reasons to return to the hospital including but not limited to recurrent or worsening symptoms, chest pain, shortness of breath , nausea, vomiting, lightheadedness, loss of consciousness, bleeding from any source, nausea, vomiting, or dizziness, changes in vision, falls with any head strike were discussed at length with the patient. He acknowledged understanding. TIME SPENT: Greater than 60 minutes was spent in the discharge of this patient , greater than half was spent [id number] with the patient. CC: Dr. Farnsworth* [id number]/[facility] #: [id number] SELVIN
== END 2016-04-09 12:00 | disposition home or self-care (01) | DRG 309 ==
LOC: ED 19:26 → MEDTELE 22:10 → OBSVTOIN 04-05 14:09
PROVIDERS: ADMIT Internal Medicine; ATTEND Internal Medicine
DX: I48.91 Unspecified atrial fibrillation (principal); N17.9 Acute kidney failure, unspecified; E86.0 Dehydration; F03.90 Unspecified dementia, unspecified severity, without behavioral disturbance, psychotic disturbance, mood disturbance, and anxiety; E87.1 Hypo-osmolality and hyponatremia; R53.1 Weakness; N40.0 Benign prostatic hyperplasia without lower urinary tract symptoms; I10 Essential (primary) hypertension; E78.5 Hyperlipidemia, unspecified; Z79.899 Other long term (current) drug therapy; Z82.49 Family history of ischemic heart disease and other diseases of the circulatory system; Z80.9 Family history of malignant neoplasm, unspecified; Z87.891 Personal history of nicotine dependence
CPT/HCPCS: 36415; 70450; 71020; 80048; 80076; 81003; 83735; 84100; 84439; 84443; 84484; 85025; 85027; 85730; 93005; 93306; G8978-GP-CL; G8979-GP-CI; J1644; J3480; J7060